=== PATIENT | male | born 1995 | race Two or more races ===

== ENCOUNTER 2016-09-23 22:31 | Emergency (ER) | payer OTHER ==
[~2016-09-23] VITALS: Ht 172.7 cm; Wt 64.4 kg
[2016-09-23 22:43] VITALS: BP 122/76
== END 2016-09-23 23:49 | disposition home or self-care (01) ==
LOC: ER 22:34
DX: T18.9XXA Foreign body of alimentary tract, part unspecified, initial encounter (principal); Y92.89 Other specified places as the place of occurrence of the external cause; Y93.89 Activity, other specified; Y99.8 Other external cause status
CPT/HCPCS: 70360-TC; 71020-TC; A4606; Z7610

== ENCOUNTER 2017-07-30 20:52 | Emergency (ER) | payer SELFPAY ==
[~2017-07-30] VITALS: Ht 167.6 cm; Wt 59.0 kg
[2017-07-30 21:21] VITALS: BP 131/82
== END 2017-07-30 22:48 | disposition home or self-care (01) ==
LOC: ER 20:52
DX: A63.0 Anogenital (venereal) warts (principal)
CPT/HCPCS: A4606; Z7610